=== PATIENT | male | born 1975 | race American Indian/Alaskan Native ===

== ENCOUNTER 2016-11-18 22:54 | Emergency (ER) | payer OTHER ==
[2016-11-18 23:27] VITALS: BP 161/95; PULSE 82; RESP 16; TEMP 97.9; O2SAT 98
--- NOTE | 2016-11-19 00:22 | C.PDOC ---
History Of Present Illness 41 year old male presents to the ED with complaints of lower back pain exacerbated by movement beginning this morning upon waking up. Patient notes sitting while at work for long periods of time but is currently on vacation. He states he took Ibuprofen for pain and denies any dysuria, chillsm fever, or hematuria. Time Seen by Provider: 11/18/16 23:37 Chief Complaint (Nursing): Back Pain History Per: Patient History/Exam Limitations: no limitations Onset/Duration Of Symptoms: Hrs Current Symptoms Are (Timing): Still Present Quality Of Discomfort: "Pain" Associated Symptoms: None Exacerbating Factor(s): Movement Recent travel outside of the [place]: No Past Medical History Reviewed: Historical Data, Nursing Documentation, Vital Signs Vital Signs: Last Vital Signs Temp 97.9 F 11/18/16 23:24 Pulse 82 11/18/16 23:24 Resp 16 11/18/16 23:24 BP 161/95 H 11/18/16 23:24 Pulse Ox 98 11/19/16 03:17 Surgical History: Tonsillectomy Family History: States: Unknown Family Hx - Social History Hx Alcohol Use: Yes Hx Substance Use: No - Immunization History Hx Tetanus Toxoid Vaccination: No Hx Influenza Vaccination: No Hx Pneumococcal Vaccination: No Physical Exam - Physical Exam Appears: Non-toxic, No Acute Distress Skin: Warm, Dry Head: Atraumatic Oral Mucosa: Moist Neck: Supple Chest: Symmetrical, No Deformity Cardiovascular: Rhythm Regular Respiratory: No Rales, No Rhonchi, No Stridor, No Wheezing Gastrointestinal/Abdominal: Soft, No Tenderness, No Distention, No Guarding, No Rebound Back: No CVA Tenderness Extremity: Normal ROM, No Tenderness Neurological/Psych: Oriented x3 ED Course And Treatment O2 Sat by Pulse Oximetry: 98 (room air ) Medical Decision Making Medical Decision Making: Patient was given Valium and Ultram. Disposition Counseled Patient/Family Regarding: Diagnosis, Need For Followup, Rx Given - Disposition Referrals: [facility] [Outside] Disposition: HOME/ ROUTINE Disposition Time: 00:19 Condition: STABLE Additional Instructions: Follow up with your doctor or the clinic. Do not drive while taking medication. Prescriptions: diaZEpam [Valium] 5 mg PO TID #12 tab Ibuprofen [Motrin] 600 mg PO TID #15 tab traMADol/Acetaminophen [Ultracet 37.5/325 mg] 1 tab PO TID PRN #12 tab PRN Reason: pain Instructions: Back Pain (ED), Back Exercises (ED) Forms: General Discharge Instructions, Work Excuse - POA Present On Arrival: None - Clinical Impression Clinical Impression: Low back pain - Scribe Statement The provider has reviewed the documentation as recorded by the Scribe Cassandra Rodríguez All medical record entries made by the Scribe were at my direction and personally dictated by me. I have reviewed the chart and agree that the record accurately reflects my personal performance of the history, physical exam, medical decision making, and the department course for this patient. I have also personally directed, reviewed, and agree with the discharge instructions and disposition.
== END 2016-11-19 00:28 | disposition home or self-care (01) ==
LOC: C.ER 22:54
DX: M54.5 Low back pain (principal)

== ENCOUNTER 2016-12-08 18:08 | Emergency (ER) | payer OTHER ==
[2016-12-08 18:18] VITALS: TEMP 99.2
[2016-12-08] MEDS ORDERED: Tetracaine 0.5% Ophth (OR ONLY) OU STA (18:35)
[2016-12-08] MEDS ORDERED: Fluorescein 1 mg Ophthalmic Strip OD STA (18:35)
[2016-12-08] MEDS ORDERED: Ciprofloxacin 0.3% OPTH SOLN OD STA (18:35)
[2016-12-08] MEDS ORDERED: Fluorescein 1 mg Ophthalmic Strip ONE (18:42)
[2016-12-08] MEDS ORDERED: Tetracaine 0.5% Ophth (OR ONLY) ONE (18:43)
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
[2016-12-08 19:30] VITALS: BP 145/75; PULSE 89; RESP 18
[2016-12-08 20:36] VITALS: O2SAT 96
== END 2016-12-08 19:31 | disposition home or self-care (01) ==
LOC: C.ER 18:08
DX: S05.01XA Injury of conjunctiva and corneal abrasion without foreign body, right eye, initial encounter (principal); Y04.0XXA Assault by unarmed brawl or fight, initial encounter